=== PATIENT | female | born 1955 | race Caucasian/White ===

== ENCOUNTER 2019-06-12 05:53 | Day surgery (SDC) | payer MEDICARE ==
[~2019-06-12] VITALS: Ht 167.6 cm; Wt 110.0 kg
[2019-06-12 06:28] VITALS: BP 123/80
[2019-06-12] MEDS ORDERED: VITA15LO2 PO (07:03)
[2019-06-12] MEDS ORDERED: CA C1TAB60 PO (07:03)
[2019-06-12] MEDS ORDERED: CLON0.5T PO (07:03)
[2019-06-12] MEDS ORDERED: MAGN400T36 PO (07:03)
[2019-06-12] MEDS ORDERED: VITA1CAP7 PO (07:03)
[2019-06-12] MEDS ORDERED: METO25TA35 PO (07:03)
[2019-06-12] MEDS ORDERED: ATOR20TA37 PO (07:03)
[2019-06-12] MEDS ORDERED: CHOL10003 PO (07:03)
[2019-06-12] MEDS ORDERED: POTA99TA24 PO (07:03)
[2019-06-12] MEDS ORDERED: BUPIVACAINE/PF-EPI 0.5% 1:200K INFIL ONE (07:10)
[2019-06-12] MEDS ORDERED: BUPIVACAINE/PF 0.5% ONE (07:16)
[2019-06-12] MEDS ORDERED: EPINEPHRINE 1 MG/ML, 1ML ONE (07:16)
[2019-06-12 07:19] LABS: BASOPHILS # (AUTO) 0.04 x10^3/uL (0-0.1); BASOPHILS % (AUTO) 1 % (0-1); EOSINOPHILS # (AUTO) 0.18 x10^3/uL (0-0.4); EOSINOPHILS % (AUTO) 3 % (1-7); LYMPHOCYTES # (AUTO) 1.37 x10^3/uL (1-3.4); LYMPHOCYTES % (AUTO) 23 % (22-44); MD NO; MEAN CORPUSCULAR HEMOGLOBIN 30.7 pg (27.0-34.8); MEAN CORPUSCULAR VOLUME 92.8 fL (80-100); MEAN PLATELET VOLUME 7.9 fL (7.4-10.4); MONOCYTES # (AUTO) 0.47 x10^3/uL (0.2-0.8); MONOCYTES % (AUTO) 8 % (2-9); NEUTROPHILS % (AUTO) 65 % (42-75); PLATELET COUNT 241 x10^3/uL (130-400); RED BLOOD COUNT 4.75 x10^6/uL (3.82-5.3); RED CELL DISTRIBUTION WIDTH 13.3 % (9.6-15.2)
[2019-06-12 07:21] LABS: ALBUMIN 3.5 g/dL (3.4-5.0); ANION GAP 4 mmol/L (5-15); CALCIUM 8.5 mg/dL (8.5-10.1); CHLORIDE 109 mmol/L (98-107)
[2019-06-12] MEDS ORDERED: FENTANYL PF 250 MCG/5ML ONE (07:24)
[2019-06-12] MEDS ORDERED: MIDAZOLAM 1 MG/ML, 2ML ONE (07:24)
[2019-06-12 07:25] LABS: ALANINE AMINOTRANSFERASE 20 U/L (12-78); ALKALINE PHOSPHATASE 87 U/L (45-117); BILIRUBIN,TOTAL 0.7 mg/dL (0.2-1.0); CREATININE 1.08 mg/dL (0.55-1.02); TOTAL PROTEIN 7.1 g/dL (6.4-8.2)
[2019-06-12] MEDS ORDERED: PROPOFOL 10 MG/ML, 20ML ONE (07:28)
[2019-06-12] MEDS ORDERED: ROCURONIUM 10 MG/ML,10ML ONE (07:35)
[2019-06-12] MEDS ORDERED: DEXAMETHASONE 4 MG/ML, 1ML ONE (07:35)
[2019-06-12] MEDS ORDERED: ONDANSETRON 2MG/ML, 2ML ONE (07:35)
[2019-06-12] MEDS ORDERED: SUCCINYLCHOLINE 20 MG/ML, 10ML ONE (07:35)
[2019-06-12] MEDS ORDERED: SUGAMMADEX 200 MG/2 ML IVPush ONE (07:35)
[2019-06-12] MEDS ORDERED: GLYCOPYRROLATE 0.2MG/1ML, 5ML ONE (07:35)
[2019-06-12] MEDS ORDERED: CEFAZOLIN 1,000 MG ONE (07:35)
[2019-06-12] MEDS ORDERED: ONDANSETRON ODT 8 MG PO PRN (08:00)
[2019-06-12] MEDS ORDERED: HYDROmorphone 2 MG/ML, 1ML IVPush PRN (08:00)
[2019-06-12] MEDS ORDERED: ONDANSETRON 2MG/ML, 2ML IV PRN (08:00)
[2019-06-12] MEDS ORDERED: hydrALAzine 20 MG/ML, 1ML IV PRN (08:00)
[2019-06-12] MEDS ORDERED: MEPERIDINE/PF 25MG/ML,1ML IVPush PRN (08:00)
[2019-06-12] MEDS ORDERED: HALOPERIDOL 5 MG/ML IV PRN (08:00)
[2019-06-12] MEDS ORDERED: EPHEDRINE 50 MG/ML, 1ML IVPush PRN (08:00)
[2019-06-12] MEDS ORDERED: PROMETHAZINE 25 MG/ML, 1ML IV PRN (08:00)
[2019-06-12] MEDS ORDERED: MIDAZOLAM 1 MG/ML, 2ML IV PRN (08:00)
[2019-06-12] MEDS ORDERED: OXYcodone 5 MG/5 ML ORAL.SOL UDC PO PRN (08:00)
[2019-06-12] MEDS ORDERED: LABETALOL 5MG/ML, 20ML IV PRN (08:00)
[2019-06-12] MEDS ORDERED: ACETAMINOPHEN 325 MG TABLET PO PRN (08:00)
[2019-06-12] MEDS ORDERED: PROMETHAZINE 12.5 MG SUPP PR PRN (08:00)
[2019-06-12] MEDS ORDERED: ALBUTEROL SULFATE 2.5 MG/3 ML NPPB PRN (08:00)
[2019-06-12] MEDS ORDERED: DIAZEPAM 5 MG/ML, 2ML IVPush PRN (08:00)
[2019-06-12] MEDS ORDERED: HALOPERIDOL 5 MG/ML ONE (09:42)
[2019-06-12] MEDS ORDERED: FENTANYL PF 100 MCG/2ML ONE (09:45)
[2019-06-12] MEDS: FENTANYL PF 100 MCG/2ML IV PRN ×2 (09:45→09:50)
== END 2019-06-12 12:00 | disposition home or self-care (01) ==
LOC: OUT 05:53
PROVIDERS: ATTEND Surgery
DX: K81.1 Chronic cholecystitis (principal); K42.0 Umbilical hernia with obstruction, without gangrene; K66.0 Peritoneal adhesions (postprocedural) (postinfection); I48.20 Chronic atrial fibrillation, unspecified; E78.5 Hyperlipidemia, unspecified; J44.9 Chronic obstructive pulmonary disease, unspecified; E66.9 Obesity, unspecified; F17.210 Nicotine dependence, cigarettes, uncomplicated; Z68.39 Body mass index [BMI] 39.0-39.9, adult; Z79.82 Long term (current) use of aspirin; Z79.891 Long term (current) use of opiate analgesic; Z79.899 Other long term (current) drug therapy; Z91.013 Allergy to seafood; Z82.49 Family history of ischemic heart disease and other diseases of the circulatory system; Z83.3 Family history of diabetes mellitus; Z80.3 Family history of malignant neoplasm of breast; Z80.42 Family history of malignant neoplasm of prostate
CPT/HCPCS: 36415; 47562; 49587; 80053; 85025; 88302; 88304; 93005; J0171; J0330; J0690; J1100; J1630; J2250; J2405; J2704; J3010